=== PATIENT | female | born 1965 | race Caucasian/White ===

== ENCOUNTER 2018-07-17 12:25 | Emergency (ER) | payer OTHER, SELFPAY ==
[2018-07-17 12:34] VITALS: BP 162/82; PULSE 86; RESP 17; TEMP 36.4; O2SAT 99; BMI 22.4
--- NOTE | 2018-07-17 12:46 | XR_ITS ---
XR chest 2V HISTORY: ITS.REASON: chest pain ORDERING PHYSICIAN: Kike Winston MD PATIENT AGE: 53 years COMPARISON: PA and lateral chest 06/04/2014 FINDINGS: Mild emphysematous changes seen with hyperexpansion of lung avelar and flattening of the hemidiaphragms. There is no infiltrate and is no pleural fluid. Cardiac size is normal and the vascularity is normal. IMPRESSION: Mild COPD, no acute chest pathology noted
[2018-07-17 12:56] LABS: Basophils # 0.1 K/mm3 (0-0.2); Basophils % 0.6 % (0.1-2.0); Eosinophils # 0.1 K/mm3 (0.0-0.4); Eosinophils % 1.7 % (0.1-12.0); Hematocrit 42.4 % (37.0-47.0); Lymphocytes # 2.2 K/mm3 (0.7-4.5); Lymphocytes % 27.8 % (10-50); Mean Corpuscular HGB Conc 33.1 g/dL (31.8-35.4); Mean Corpuscular Hemoglobin 29.3 pg (27.0-31.2); Mean Corpuscular Volume 88.3 fl (81-99); Mean Platelet Volume 6.2 fl (7.4-10.4); Monocytes # 0.4 K/mm3 (0.1-1.0); Monocytes % 4.3 % (1.7-9.3); Neutrophils # 5.3 K/mm3 (1.8-7.8); Neutrophils % 65.6 % (37.0-80.0); Platelet Count 262 K/mm3 (142-424); Red Cell Distribution Width 12.8 % (11.5-17.5)
--- NOTE | 2018-07-17 13:03 | HMH.EDGENADL ---
ED Disposition Clinical Impression: Chest pain Disposition: Home, Self-Care Condition on Discharge: Good Instructions: DI for Atypical Chest Pain Prescriptions: Albuterol Sulfate [Albuterol HFA Inhaler] 2 puffs IH Q6HP PRN #1 inh PRN Reason: Shortness Of Breath Or Wheezing Diclofenac Potassium [Diclofenac 50mg Tab] 50 mg PO BID #20 tab Referrals: Provider,Referral, MD [Primary Care Provider] - Time of Disposition: 14:00 - Critical Care Critical Care Time: No Attestation: On 07/17/18, the high probability of a clinically significant, sudden or life threatening deterioration of the following system(s) required my full and direct attention, intervention and personal management. The time I documented below is in addition to time spent performing reported procedures but includes the following listed in this critical care notation. Medical Decision Making - Medical Records Medical records reviewed: Yes: I reviewed the patient's medical records. - Lamberto Inquiry Pt receiving controlled substance: No Lamberto was queried for this patient: No Vital Signs: 07/17/18 12:34 07/17/18 14:11 Temperature 97.6 F 98.0 F Temperature Source Oral Oral Pulse Rate 73 Pulse Rate [Right Brachial] 86 Respiratory Rate 17 18 Blood Pressure 142/75 H Blood Pressure [Right Arm] 162/82 H Blood Pressure Mean [Right Arm] 108 Blood Pressure Source Automatic Cuff Blood Pressure Source [Right Arm] Automatic Cuff Blood Pressure Position Sitting Blood Pressure Position [Right Arm] Sitting 02 Sat by Pulse Oximetry 99 Oxygen Delivery Method Room Air Room Air - Lab Data Lab results reviewed: Yes: I reviewed the patient's lab results. Lab Results 07/17/18 12:47: WBC 8.0, RBC 4.80, Hgb 14.0, Hct 42.4, MCV 88.3, MCH 29.3, MCHC 33.1, RDW 12.8, Plt Count 262, MPV 6.2 L, Neut % (Auto) 65.6, Lymph % (Auto) 27.8, [place] % (Auto) 4.3, Eos % (Auto) 1.7, Baso % (Auto) 0.6, Neut # (Auto) 5.3, Lymph # (Auto) 2.2, [place] # (Auto) 0.4, Eos # (Auto) 0.1, Baso # (Auto) 0.1 07/17/18 12:47: Sodium 143, Potassium 3.4 L, Chloride 103, Carbon Dioxide 29, Anion Gap 14.4, BUN 17, Creatinine 0.69, Estimated Creat Clear 89, Estimated GFR 88, Est GFR ( Amer) 107, Glucose 89, Calcium 9.0, Troponin I < 0.02 07/17/18 12:47: D-Dimer < 100 Result diagrams: 07/17/18 12:47 07/17/18 12:47 Orders (Tests/Meds): ED MEDICATIONS Discontinued Medications Generic Name Dose Route Start Last Admin Trade Name Freq PRN Reason Stop Dose Admin Ketorolac Tromethamine 30 mg 07/17/18 12:53 07/17/18 12:54 Toradol 30mg/Ml Vial IV 07/17/18 12:54 30 mg ONCE ONE Administration Prednisone 60 mg 07/17/18 13:19 07/17/18 13:46 Deltasone 20mg Tablet PO 07/17/18 13:20 60 mg ONCE ONE Administration Sodium Chloride 10 ml 07/17/18 12:56 Saline Flush 10ml Syringe IV 08/16/18 12:55 NEEDED PRN Maintain IV Site General Adult HPI - General Chief complaint: PAIN Stated complaint: pain under breat and left arm Time Seen by Provider: 07/17/18 13:19 Mode of Arrival: Ambulatory Limitations: No Limitations Description of Symptoms (Recalled from ER Triage Doc. by RN): PT STATED HAS HAD LEFT ARM/SHOULDER AND BREAST PAIN FOR OVER A WEEK. THOUGHT MAYBE WAS PLEURITIC IN NATURE BUT IT KEEPS RADIATING DOWN HER ARM. NO COMPLAINTS OF NAUSEA, SOA , OR OTHER CARDIAC RELATED ISSUES. 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 NO ACUTE DISTRESS AT TIME OF TRIAGE - History of Present Illness HPI narrative: had hard coughing spell at night, pain in left chest since. - Related Data Previous Rx's Medication Instructions Recorded benzonatate 100 mg capsule 100 mg PO BID PRN #14 cap 08/27/17 Albuterol Sulfate [Albuterol HFA 2 puffs IH Q6HP PRN #1 inh 07/17/18 Inhaler] Diclofenac Potassium [Diclofenac 50 mg PO BID #20 tab 07/17/18 50mg Tab] All
--- NOTE | 2018-07-17 13:07 | ED_ITS ---
ED Disposition Clinical Impression: Chest pain Disposition: Home, Self-Care Condition on Discharge: Good Instructions: DI for Atypical Chest Pain Prescriptions: Albuterol Sulfate [Albuterol HFA Inhaler] 2 puffs IH Q6HP PRN #1 inh PRN Reason: Shortness Of Breath Or Wheezing Diclofenac Potassium [Diclofenac 50mg Tab] 50 mg PO BID #20 tab Referrals: Provider,Referral, MD [Primary Care Provider] - Time of Disposition: 14:00 - Critical Care Critical Care Time: No Attestation: On 07/17/18, the high probability of a clinically significant, sudden or life threatening deterioration of the following system(s) required my full and direct attention, intervention and personal management. The time I documented below is in addition to time spent performing reported procedures but includes the following listed in this critical care notation. Medical Decision Making - Medical Records Medical records reviewed: Yes: I reviewed the patient's medical records. - Lamberto Inquiry Pt receiving controlled substance: No Lamberto was queried for this patient: No Vital Signs: 07/17/18 12:34 07/17/18 14:11 Temperature 97.6 F 98.0 F Temperature Source Oral Oral Pulse Rate 73 Pulse Rate [Right Brachial] 86 Respiratory Rate 17 18 Blood Pressure 142/75 H Blood Pressure [Right Arm] 162/82 H Blood Pressure Mean [Right Arm] 108 Blood Pressure Source Automatic Cuff Blood Pressure Source [Right Arm] Automatic Cuff Blood Pressure Position Sitting Blood Pressure Position [Right Arm] Sitting 02 Sat by Pulse Oximetry 99 Oxygen Delivery Method Room Air Room Air - Lab Data Lab results reviewed: Yes: I reviewed the patient's lab results. Lab Results 07/17/18 12:47: WBC 8.0, RBC 4.80, Hgb 14.0, Hct 42.4, MCV 88.3, MCH 29.3, MCHC 33.1, RDW 12.8, Plt Count 262, MPV 6.2 L, Neut % (Auto) 65.6, Lymph % (Auto) 27.8, [place] % (Auto) 4.3, Eos % (Auto) 1.7, Baso % (Auto) 0.6, Neut # (Auto) 5.3, Lymph # (Auto) 2.2, [place] # (Auto) 0.4, Eos # (Auto) 0.1, Baso # (Auto) 0.1 07/17/18 12:47: Sodium 143, Potassium 3.4 L, Chloride 103, Carbon Dioxide 29, Anion Gap 14.4, BUN 17, Creatinine 0.69, Estimated Creat Clear 89, Estimated GFR 88, Est GFR ( Amer) 107, Glucose 89, Calcium 9.0, Troponin I < 0.02 07/17/18 12:47: D-Dimer < 100 Result diagrams: 07/17/18 12:47 07/17/18 12:47 Orders (Tests/Meds): ED MEDICATIONS Discontinued Medications Generic Name Dose Route Start Last Admin Trade Name Freq PRN Reason Stop Dose Admin Ketorolac Tromethamine 30 mg 07/17/18 12:53 07/17/18 12:54 Toradol 30mg/Ml Vial IV 07/17/18 12:54 30 mg ONCE ONE Administration Prednisone 60 mg 07/17/18 13:19 07/17/18 13:46 Deltasone 20mg Tablet PO 07/17/18 13:20 60 mg ONCE ONE Administration Sodium Chloride 10 ml 07/17/18 12:56 Saline Flush 10ml Syringe IV 08/16/18 12:55 NEEDED PRN Maintain IV Site General Adult HPI - General Chief complaint: PAIN Stated
[2018-07-17 13:12] LABS: Anion Gap 14.4 mEq/L (5-15); Blood Urea Nitrogen 17 mg/dL (7-18); Carbon Dioxide 29 mmol/L (21.0-32.0); Chloride 103 mmol/L (98-107); Creatinine Clearance Estimated 89 mL/min (50-200); Creatinine,Serum 0.69 mg/dL (0.55-1.02); Estimated Glomerular Filt Rate 88 ml/min (>60); GFR (African American) 107 ML/MIN (>60); Glucose 89 mg/dL (74-106); Potassium 3.4 mmoL/L (3.5-5.1); Sodium 143 mmol/L (136-145); Troponin I < 0.02 ng/ml (0.00-0.06)
[2018-07-17 13:36] LABS: D-Dimer < 100 ng/mL (0-400)
[2018-07-17 14:11] VITALS: BP 142/75; PULSE 73; RESP 18; TEMP 36.7; O2SAT 98
== END 2018-07-17 14:21 | disposition home or self-care (01) ==
PROVIDERS: Emergency Provider Emergency Medicine
DX: R07.89 Other chest pain (principal); F17.210 Nicotine dependence, cigarettes, uncomplicated; E87.6 Hypokalemia
CPT/HCPCS: 71046; 80048; 84484; 85025; 85378; 93005; 96374; 96375; 99283

== ENCOUNTER → 2018-07-26 15:35 | Outpatient (CLI) | payer OTHER, SELFPAY ==
--- NOTE | 2018-07-26 15:47 | XR_ITS ---
EXAM: XR cervical spine 5V HISTORY: Neck pain ITS.REASON: CERVICAL RADICULOPATHY ORDERING PHYSICIAN: Deepthi Beard PATIENT AGE: 53 years COMPARISON: None FINDINGS: There is slight reversal of the cervical lordosis which may be due to patient positioning or muscle spasm. There is 3 mm anterolisthesis of C4 on C5. Moderate degenerative disc disease is present at C5-C6 and C6-C7. Mild foraminal narrowing is noted on the left at C5-C6 and C6-C7. Hypertrophic changes are present on the facets at C3 and C4. No fracture or dislocation. No lytic or blastic change. There is some head tilt to the right IMPRESSION: Reversal lordosis with head tilt toward the right. This could be seen with muscle spasm. Cervical spondylosis
== END ==
PROVIDERS: PCP Internal Medicine Adolescent Medicine; Visit Provider Nurse Practitioner Family
DX: M54.12 Radiculopathy, cervical region (principal)
CPT/HCPCS: 72050

== ENCOUNTER → 2018-09-14 08:42 | Outpatient (CLI) | payer OTHER, SELFPAY ==
--- NOTE | 2018-09-14 08:49 | XR_ITS ---
XR elbow LT min 3V HISTORY: Pain ITS.REASON: ap+ lateral, radial head view ORDERING PHYSICIAN: Angie Batres MD PATIENT AGE: 53 years COMPARISON: None FINDINGS: BONY STRUCTURES: No fracture or dislocation. No lytic or blastic change. Normal mineralization. SOFT TISSUES: Unremarkable. No radio opaque foreign bodies. No displaced fat pad. JOINT SPACE: Well-preserved. No significant arthritic changes evident. IMPRESSION: Negative elbow.
--- NOTE | 2018-09-14 09:05 | XR_ITS ---
XR humerus LT CLINICAL INDICATION: ITS.REASON: left humerus pain ORDERING PHYSICIAN: Angie Batres MD PATIENT AGE: 53 years Comparison: None FINDINGS: No bony or joint abnormality IMPRESSION: Negative left humerus
== END ==
PROVIDERS: PCP Nurse Practitioner Family; Visit Provider Orthopaedic Surgery
DX: M25.522 Pain in left elbow (principal); M79.602 Pain in left arm
CPT/HCPCS: 73060; 73080

== ENCOUNTER → 2018-09-22 12:24 | Outpatient (POV) | payer OTHER, SELFPAY | PROVIDERS: Visit Provider Specialist | DX: R20.2 Paresthesia of skin (principal); M54.2 Cervicalgia; M79.602 Pain in left arm | CPT/HCPCS: 95886; 95908 ==

== ENCOUNTER 2018-09-28 14:00 | Outpatient (RCR) | payer OTHER, SELFPAY ==
--- NOTE | 2018-09-15 09:37 | HMH.PTOPEV ---
PT Outpatient Evaluation Rehab PT Outpatient Evaluation Start: 09/15/18 09:20 Freq: Status: Active Protocol: Document 09/15/18 09:20 HILDA (Rec: 09/15/18 09:35 HILDA [id number]) Electronically Signed By Montrell Gruber, PT 09/15/18 09:20 Outpatient Therapy Subjective History Subjective History Patient is a 53 year old female presenting to outpatient PT with reports of L cervical spine pain and LUE radicular symptoms to the L index finger. Most recent diagnostics indicate reverse cervical lordosis and cervical spondylosis. No other comorbidities to report. Chief Complaint Pain,Stiff Symptom Type Sharp,Tingling Symptoms Relieved By Heat,Ice,Prescription Meds Symptoms Aggravated By Physical Activity,Lifting Prior Functional Limitations None Current Functional Limitations Reaching,Lifting,Housework, Recreation Activity Symptom Description Constant but Variable Level of pain today (0-10) 5 Pain scale - at its best (0-10) 2 Pain scale - at its worst (0-10) 7 Cervical Eval Palpation Cervical Muscles L Cervical Paraspinal,L Upper Trapezius Posture Head/C-Spine Posture Sitting Position C-Spine Flattened Head/C-Spine Posture Standing Position C-Spine Flattened Flexibility Deficits Upper Trapezius Muscle Length (R) Moderate Tightness,(L) Moderate Tightness Levaetor Scapulae Muscle Length (R) Moderate Tightness,(L) Moderate Tightness Pectoralis Minor Muscle Length (R) Moderate Tightness,(L) Moderate Tightness Passive Joint Mobility Cervical PIVM Dec: R C2/3 L C2/3 R C3/4 L C3/4 R C4/5 L C4/5 R C5/6 L C5/6 R C6/7 L C6/7 R C7/T1 L C7/T1 WNL: R OA L OA R AA L AA AROM Cervical Spine Extension Active Range of 48 Motion (degrees) Cervical Spine Flexion Active Range of 70 Motion (degrees) Cervical Spin
== END 2018-09-28 14:05 | disposition home or self-care (01) ==
LOC: PT 14:00
PROVIDERS: Visit Provider Nurse Practitioner Family
DX: M54.12 Radiculopathy, cervical region (principal); R20.2 Paresthesia of skin
CPT/HCPCS: 97010; 97012; 97014; 97035; 97110; 97140; 97163; G0283

== ENCOUNTER → 2020-12-05 10:13 | Outpatient (CLI) | payer BC, SELFPAY ==
--- NOTE | 2020-12-05 10:31 | XR_ITS ---
PROCEDURE: XR CHEST 2V CLINICAL HISTORY: CHEST PAIN,EMPHYSEMA COMPARISON: CR CXR CHEST(2 VIEWS-NOT PORTABLE) from 05/21/[address] CHEST W/ CONTRAST from 06/04/2014 CR CXR CHEST(2 VIEWS-NOT PORTABLE) from 06/04/2014 CR CXR2V XR chest 2V from 07/17/2018 CR [id number] XR cervical spine 5V from 07/26/2018 FINDINGS: The cardiomediastinal silhouette and pulmonary vascularity are within normal limits. An apical mass is present on the right measuring 4 x 2.9 cm with spiculated margins highly suspicious for neoplasm. Suggest chest CT with contrast for further evaluation. No acute bony abnormalities. IMPRESSION: Spiculated right apical mass highly suspicious for neoplasm. Suggest chest CT with contrast for further evaluation. Dictated by: Oscar Mosqueda MD 12/05/2020 10:51 Oscar Mosqueda MD in [place] 12/05/2020 10:51
[2020-12-05 10:45] LABS: Basophils # 0.1 K/mm3 (0-0.2); Basophils % 0.7 % (0.1-2.0); Eosinophils # 0.1 K/mm3 (0.0-0.4); Hematocrit 42.3 % (37.0-47.0); Hemoglobin 14.4 g/dL (12.2-16.2); Lymphocytes # 1.6 K/mm3 (0.7-4.5); Lymphocytes % 20.3 % (10-50); Mean Corpuscular HGB Conc 34.1 g/dL (31.8-35.4); Mean Corpuscular Hemoglobin 29.4 pg (27.0-31.2); Mean Platelet Volume 7.2 fl (7.4-10.4); Monocytes # 0.3 K/mm3 (0.1-1.0); Monocytes % 4.5 % (1.7-9.3); Neutrophils # 5.6 K/mm3 (1.8-7.8); Neutrophils % 73.5 % (37.0-80.0); Platelet Count 257 K/mm3 (142-424); Red Blood Count 4.91 M/mm3 (4.20-5.40); Red Cell Distribution Width 13.3 % (11.5-17.5); White Blood Count 7.7 K/mm3 (4.8-10.8)
[2020-12-05 11:06] LABS: Chloride 105 mmol/L (98-107); Potassium 3.8 mmoL/L (3.5-5.1); Sodium 142 mmol/L (136-145)
[2020-12-05 11:08] LABS: Alanine Aminotransferase 10 U/L (12-78); Aspartate Amino Transferase 19 U/L (14-36); Blood Urea Nitrogen 16 mg/dl (7-17); Estimated Glomerular Filt Rate 86 ml/min (>60); GFR (African American) 104 ML/MIN (>60)
[2020-12-05 11:09] LABS: Albumin Level 4.8 g/dl (3.5-5.0); Albumin/Globulin Ratio 1.8 (1.1-1.8); Alkaline Phosphatase 120 U/L (38-126); Anion Gap 12.8 mEq/L (5-15); Bilirubin,Total 0.6 mg/dl (0.2-1.3); Calcium 9.2 mg/dl (8.4-10.2); Carbon Dioxide 28 mmol/L (22.0-30.0); Chol/HDL Ratio 3.8 (1-3.5); Cholesterol 214 mg/dl (140-200); Globulin 2.7 g/dL (1.3-3.2); Glucose 105 mg/dl (74-100); HDL Cholesterol 56 mg/dl (40-60); Total Protein,Serum 7.5 g/dl (6.3-8.2); Triglycerides 126 mg/dl (30-150); VLDL Cholesterol 25 mg/dL (0-40)
== END ==
PROVIDERS: Visit Provider Internal Medicine Adolescent Medicine
DX: R07.9 Chest pain, unspecified (principal); J43.1 Panlobular emphysema
CPT/HCPCS: 36415; 71046; 80053; 80061; 85025

== ENCOUNTER → 2020-12-11 11:07 | Outpatient (CLI) | payer BC, SELFPAY ==
--- NOTE | 2020-12-11 11:12 | CT_ITS ---
PROCEDURE: CT CHEST WO/W CON CLINCAL INDICATION: NODULE OF APEX OF RT LUNG Follow-up right lung nodule, right-sided chest pain COMPARISON: CT [facility] CT CHEST W/ CONTRAST from 06/04/2014 TECHNIQUE: IV Contrast: 75ml Isovue 370 Axial images obtained with sagittal and coronal reformats. All CT scans at the facility use one or more dose reduction, viz: automated exposure control, ma/kV adjustment per patient size (including targeted exams where dose is matched to indication, i.e. head), or iterative reconstruction technique. FINDINGS: HEART AND MEDIASTINAL STRUCTURES: There is a mildly prominent right hilar lymph node which is slightly increased in size compared to the previous exam measuring 1.5 cm previously measuring approximately 1.2 cm. LUNGS AND PLEURAL SPACES: There has been interval development a spiculated right apical mass. The mass measures 3.5 cm AP, 2.5 cm transverse, and 2.1 cm cephalad caudad. Mass extends 2 the pleural surface. Cannot exclude the possibility minor extrapleural involvement into the chest wall the. This is highly suspicious for neoplasm. There is some minimal cavitation along the inferior aspect of the mass. Spicules from the mass extend toward the hilum. There is some recruitment right upper lobe pulmonary vessels. Centrilobular emphysematous changes are present. There are some scattered areas of scarring. Along the superior aspect of the aortic arch there is irregular soft tissue nodule measuring 2.2 cm transverse and 1 cm AP. This could represent a metastatic focus, an area of infiltrate, atelectasis or fibrosis, the or even a synchronous lung neoplasm. BONY STRUCTURES: No acute bony abnormalities apparent. UPPER ABDOMEN: Adrenal glands have an unremarkable appearance. The liver is not completely visualized however the visualized portions of the liver show no obvious mass. ADDITIONAL FINDINGS: No other significant abnormalities. IMPRESSION: 3.5 cm spiculated mass in the right apex highly suspicious for malignancy extending extending to the pleural surface and possibly through the pleura into the intercostal space of the right 1st rib. Additional irregular opacity in the left upper lobe lying along the superior aspect of the aortic arch at 2.2 cm which could be due to metastatic focus, 2nd lung cancer, or an area of atelectasis/fibrosis or infiltrate. Suggest PET-CT for further evaluation for staging to better determine if this is an area of neoplasm. There is a mildly prominent right hilar lymph node at 1.5 cm. No contralateral adenopathy. Dictated by: Oscar Mosqueda MD 12/11/2020 13:47 Oscar Mosqueda MD in [place] 12/11/2020 13:47
== END ==
PROVIDERS: PCP Internal Medicine Adolescent Medicine; Visit Provider Internal Medicine Adolescent Medicine
DX: R91.1 Solitary pulmonary nodule (principal)
CPT/HCPCS: 71270; Q9967

== ENCOUNTER → 2020-12-26 13:16 | Outpatient (CLI) | payer BC, SELFPAY | PROVIDERS: Visit Provider Internal Medicine Pulmonary Disease | DX: Z01.812 Encounter for preprocedural laboratory examination (principal); Z11.52 Encounter for screening for COVID-19 | CPT/HCPCS: U0003 ==

== ENCOUNTER 2020-12-29 08:34 | Day surgery (SDC) | payer BC, OTHER, SELFPAY ==
[2020-12-25 14:59] VITALS: BMI 21.6
[2020-12-29] VITALS (11 sets, daily range): BP systolic 116–147; BP diastolic 61–87; PULSE 60–68; RESP 16–22; TEMP 36.2–36.7; O2SAT 97–100
--- NOTE | 2020-12-29 10:30 | HMH.ANESCL ---
[facility] Anesthesia Checklist - Patient Identification Patient Identification: Arm Band - Structural Data Admitted From: Home Planned Operative Procedure/s: bronchoscopy Consent for Planned Operative Procedure(s) Verified: Yes Verified Documents: Surgical Consent, History and Physical - NPO Status Verified Time NPO: 00:00 - Additional verifications Anesthesia Reactions: No Hx Blood Transfusions: No Blood Transfusion Reaction: No - Airway Assessment C-Spine Mobility Assessed: Yes (mp2) TMJ Mobility Assessed: Yes Dentition: Good Dentition - Neurological Assessment Level of Consciousness: Awake, Alert - Anesthesia Plan Anesthesia Risk discussed: Yes Anesthesia Plan: Verified ASA Class: III Anesthesia Type: General [facility] History I have reviewed the patient's past medical history: Yes Medical History: Reports:: Cancer (lung), Chronic Obstructive Pulmonary Disease (COPD), Hypertension Denies:: Diabetes Mellitus Type 1, Diabetes Mellitus Type 2, Internal Pacemaker, MRSA, Seizures *Have you ever received a pneumonia vaccine?: No *Have you received a flu vaccine this season?: No Other Medical History: Denies: Blood Transfusion Reaction Anesthesia experience/problems:: nac Other Surgeries: Yes: , Tubal Ligation, Other. No: Pacemaker Amputation: No Fractures: No - *Social History Last grade of school completed: High school graduate Smoking Status: Current every day smoker Tobacco Type: cigarettes # Packs/Day (cigarettes): 1 #Yrs smoked (if former smoker): 30 Alcohol Intake: current Alcohol Intake Frequency:: holidays/special occasions only Substance Use Type: denies use *Occupational Status:: employed Housing: house Household Members: spouse *Travel in the last 8 weeks: None Family Hx:: Heart Attack
--- NOTE | 2020-12-29 12:07 | HMH.BRONCH ---
- Procedure: Date: 12/29/20 Patient Date of :: 1965 Procedure Performed:: Bronchoscopy with endobronchial ultrasound fine-needle aspiration, bronchoalveolar lavage and transbronchial biopsy Indications:: Right lung mass and lymphadenopathy Performing Provider:: Brian Nguyen MD Referring Provider:: Sedation:: General anesthesia Procedure:: Bronchoscopy with endobronchial ultrasound, fine-needle aspiration, bronchoalveolar lavage transbronchial biopsy: A clean EBUS bronchoscopy was advanced the ET tube and lymph node stations were examined, patient found to be having internal adenopathy at stations 10L and 7, 10 R and 4R. Endobronchial ultrasound-guided fine-needle aspirations were performed in each of these 4 lymph node stations 5 passes with each station. Preliminary pathology examination [there lymphoid tissue with all the stations with no evidence of tumor. EBUS bronchoscopy was retracted chronically therapeutic bronchoscopy was advanced; for was lavage was performed the right upper lobe, and sent for bacterial fungal AFB stain culture along with cytopathology. Transbronchial biopsies were also performed in the right upper lobe and were only sent for cytopathological examination. Patient tolerated the procedure well. We will follow the patient in the clinic with a PET scan as previously scheduled in the clinic. Findings:: Please see the procedure note Recommendations:: Please see the procedure note Complications:: None Estimated blood obtained (mL): 10
--- NOTE | 2020-12-29 12:17 | HMH.ANESI ---
[facility] Anesthesia Record Part I Intake, IV Amount: 1,200 Estimated blood loss (mL): 0 Urine output (mL): 0 Blood Pressure: 130/82 SaO2: 100 Pulse Rate: 68 Respiratory Rate: 16 Temperature: 97.2 F Patient is:: Drowsy, Stable
--- NOTE | 2020-12-29 12:22 | XR_ITS ---
PROCEDURE: XR CHEST AP CLINICAL HISTORY: Right upper lobe mass COMPARISON: CR CXR CHEST(2 VIEWS-NOT PORTABLE) from 06/04/2014 CR CXR2V XR chest 2V from 07/17/2018 CR XR CHEST 2V from 12/05/[address] CHEST WO/W CON from 12/11/2020 FINDINGS: Fluoroscopy time: 105 seconds Single image submitted with the C-arm shows a catheter overlying the right upper lobe at the 2nd rib region in the area of the right upper lobe lesion. IMPRESSION: S/p and a bronchoscopic biopsy with C-arm guidance Dictated by: Oscar Mosqueda MD 12/29/2020 12:55 Oscar Mosqueda MD in [place] 12/29/2020 12:55
--- NOTE | 2020-12-29 14:32 | HMH.ANESII ---
[facility] Anesthesia Record Part II Discharge Time: 12:50 Destination: Surgical Day Care (OP Surgery) PACU nurse assessment reviewed?: Yes Patient Condition:: Good Anesthesia Complications:: None Swallowing reflex intact?: Yes Cyanosis?: No Blood Pressure: 143/81 Pulse Rate: 67 Temperature: 98 F Mental Status: Alert & Oriented Pain level:: 3 Nausea and/or vomitting:: None Intake, IV Amount: 0
== END 2020-12-29 13:21 | disposition home or self-care (01) ==
LOC: OR 08:35
PROVIDERS: PCP Internal Medicine Adolescent Medicine; Visit Provider Internal Medicine Pulmonary Disease
PROC: (CPT 31624; principal; 2020-12-29 10:00)
DX: R91.8 Other nonspecific abnormal finding of lung field (principal); R59.0 Localized enlarged lymph nodes; F17.210 Nicotine dependence, cigarettes, uncomplicated; J44.9 Chronic obstructive pulmonary disease, unspecified
CPT/HCPCS: 31624; 31654; 31653; 71045; 87070; 87102; 87116; 87186; 87205; 87206; 89051

== ENCOUNTER 2021-07-30 14:25 | Inpatient (IN) | payer BC, SELFPAY ==
[2021-07-30] VITALS (12 sets, daily range): BP systolic 96–117; BP diastolic 55–72; PULSE 79–91; RESP 14–24; TEMP 36.8–37.3; O2SAT 95–100; BMI 22.4; BMI 22.0
--- NOTE | 2021-07-30 14:57 | ECG_ITS ---
APPROVED REPORT Exam: Resting ECG HR:81 bpm ECG Measurements Heart Rate 81 AXES TX 168 P 72 QRSd 94 QRS 68 QT 410 T 29 QTc 447 Conclusion SINUS RHYTHM INCOMPLETE RIGHT BUNDLE BRANCH BLOCK [90+ ms QRS DURATION, TERMINAL R IN V1/V2, 40+ ms S IN I/aVL/V4/V5/V6] NONSPECIFIC T-WAVE ABNORMALITY BORDERLINE ECG UNCONFIRMED REPORT Electronically signed by : Rashad Thomas MD 07/31/2021 16:02:21
--- NOTE | 2021-07-30 15:03 | XR_ITS ---
FINAL REPORT CLINICAL HISTORY: cough, cancer pt is going through chemo and radiation COMPARISON: December 05, 2020 FINDINGS: The heart size is normal. The mediastinum is normal. There is interval improvement in the soft tissue opacity in the periphery of the right upper lobe. Opacity measures 3.8 cm and previously measured 5.5 cm. There are no pleural effusions. There is no pneumothorax. There is no osseous abnormality. IMPRESSION: Interval improvement in the right upper lobe soft tissue opacity. If indicated, CT could further evaluate. Reviewed, Interpreted and Dictated by Suman Flores III, MD Transcribed by Klever Thomas Authenticated by Suman Flores III, MD on 07/30/2021 04:17:[address] [facility]
--- NOTE | 2021-07-30 15:05 | HMH.EDWEAK ---
ED Disposition Clinical Impression: Hyponatremia, Acute kidney injury, Hypokalemia, Dehydration Disposition: Admitted as Observation Condition on Discharge: Fair Referrals: Rashad Thomas MD [Primary Care Provider] - - Critical Care Critical Care Time: No Attestation: On 07/30/21, the high probability of a clinically significant, sudden or life threatening deterioration of the following system(s) required my full and direct attention, intervention and personal management. The time I documented below is in addition to time spent performing reported procedures but includes the following listed in this critical care notation. Medical Decision Making - Medical Records Medical records reviewed: Yes: I reviewed the patient's medical records. - Lamberto Inquiry Pt receiving controlled substance: No Vital Signs: 07/30/21 14:26 07/30/21 14:43 07/30/21 15:00 Temperature 99.2 F Temperature Source Oral Pulse Rate 91 H 81 Pulse Rate [Right Radial] 88 Respiratory Rate 16 Blood Pressure 117/67 96/59 L Blood Pressure [Right Arm] 117/67 Blood Pressure Mean [Right Arm] 83 Blood Pressure Source [Right Arm] Automatic Cuff Blood Pressure Position [Right Arm] Sitting 02 Sat by Pulse Oximetry 100 100 98 Oxygen Delivery Method Room Air 07/30/21 15:30 07/30/21 16:00 Temperature Temperature Source Pulse Rate 86 79 Pulse Rate [Right Radial] Respiratory Rate 24 14 Blood Pressure 100/69 L 110/72 Blood Pressure [Right Arm] Blood Pressure Mean [Right Arm] Blood Pressure Source [Right Arm] Blood Pressure Position [Right Arm] 02 Sat by Pulse Oximetry 98 95 Oxygen Delivery Method - Lab Data Lab Results 07/30/21 14:45: Sodium 126 L, Potassium 2.6 L*, Chloride 84 L, Carbon Dioxide 34 H, Anion Gap 10.6, BUN 29 H, Creatinine 1.30 H, Estimated Creat Clear 46, Estimated GFR 42 L, Est GFR ( Amer) 51 L, Glucose 134 H, Calcium 8.0 L, Total Bilirubin 0.8, AST 25, ALT 22, Alkaline Phosphatase 79, Troponin I 0.02, Total Protein 6.5, Albumin 3.7, Globulin 2.8, Albumin/Globulin Ratio 1.3, Lipase 25 07/30/21 14:55: WBC 1.3 L*, RBC 2.83 L, Hgb 8.6 L, Hct 25.2 L, MCV 88.8, MCH 30.5, MCHC 34.4, RDW 14.8, Plt Count 125 L, MPV 8.2, Neut % (Auto) 72.9, Lymph % (Auto) 19.6, [place] % (Auto) 5.8, Eos % (Auto) 0.7, Baso % (Auto) 1.0, Neut # (Auto) 1.0 L, Lymph # (Auto) 0.3 L, [place] # (Auto) 0.1, Eos # (Auto) 0.0, Baso # (Auto) 0.0 07/30/21 14:55: Sodium 126 L, Potassium 2.6 L*, Chloride 84 L, Carbon Dioxide 34 H, Anion Gap 10.6, BUN 30 H, Creatinine 1.20 H, Estimated Creat Clear 49, Estimated GFR 46 L, Est GFR ( Amer) 56 L, Glucose 135 H, Calcium 7.9 L, Total Bilirubin 0.8, AST 26, ALT 23, Alkaline Phosphatase 73, Total Protein 6.3, Albumin 3.6, Globulin 2.7, Albumin/Globulin Ratio 1.3 Result diagrams: 07/30/21 14:55 07/30/21 14:55 Orders (Tests/Meds): ED MEDICATIONS Generic Name Dose Route Start Last Admin Trade Name Freq PRN Reason Stop Dose Admin Sodium Chloride 10 ml 07/30/21 14:56 Sodium Chloride 0.9% 10ml Flush Syringe IV 08/29/21 14:55 NEEDED PRN Maintain IV Site Sodium Chloride 8 ml 07/30/21 15:03 Sodium Chloride 0.9% 10ml Vial IV 08/29/21 15:02 NEEDED PRN dilute pepcid Discontinued Medications Generic Name Dose Route Start Last Admin Trade Name Freq PRN Reason Stop Dose Admin Famotidine 20 mg 07/30/21 15:03 07/30/21 15:15 Famotidine 20mg/2ml Vial IV 07/30/21 15:04 20 mg ONCE ONE Administration Sodium Chloride 1,000 mls @ 999 mls/hr 07/30/21 15:15 07/30/21 15:15 Sod Chlor 0.9% 1000ml Bag IV 07/30/21 16:15 999 mls/hr .Q1H1M JEREMIAS Administration Magnesium Sulfate 1 gm/ Sodium 52 mls @ 100 mls/hr 07/30/21 15:17 07/30/21 15:29 Chloride IV 07/30/21 15:48 100 mls/hr ONCE ONE Administration Potassium Chloride/Water 100 mls @ 100 mls/hr 07/30/21 15:17 Potassium Chloride 10meq/100ml Ivpb IV 07/30/21 16:16 ONCE
[2021-07-30 15:11] LABS: Chloride 84 mmol/L (98-107); Sodium 126 mmol/L (136-145)
[2021-07-30 15:13] LABS: Blood Urea Nitrogen 30 mg/dl (7-17); Creatinine Clearance Estimated 49 mL/min (50-200); Estimated Glomerular Filt Rate 46 ml/min (>60); GFR (African American) 56 ML/MIN (>60)
[2021-07-30 15:14] LABS: Alanine Aminotransferase 23 U/L (12-78); Albumin Level 3.6 g/dl (3.5-5.0); Albumin/Globulin Ratio 1.3 (1.1-1.8); Alkaline Phosphatase 73 U/L (38-126); Anion Gap 10.6 mEq/L (5-15); Aspartate Amino Transferase 26 U/L (14-36); Bilirubin,Total 0.8 mg/dl (0.2-1.3); Calcium 7.9 mg/dl (8.4-10.2); Carbon Dioxide 34 mmol/L (22.0-30.0); Globulin 2.7 g/dL (1.3-3.2); Glucose 135 mg/dl (74-100); Total Protein,Serum 6.3 g/dl (6.3-8.2)
[2021-07-30 15:15] LABS: Potassium 2.6 mmoL/L (3.5-5.1)
[2021-07-30 15:17] LABS: Alanine Aminotransferase 22 U/L (12-78); Aspartate Amino Transferase 25 U/L (14-36); Bilirubin,Total 0.8 mg/dl (0.2-1.3); Blood Urea Nitrogen 29 mg/dl (7-17); Creatinine Clearance Estimated 46 mL/min (50-200); Estimated Glomerular Filt Rate 42 ml/min (>60); GFR (African American) 51 ML/MIN (>60)
[2021-07-30 15:18] LABS: Albumin Level 3.7 g/dl (3.5-5.0); Albumin/Globulin Ratio 1.3 (1.1-1.8); Alkaline Phosphatase 79 U/L (38-126); Carbon Dioxide 34 mmol/L (22.0-30.0); Globulin 2.8 g/dL (1.3-3.2); Glucose 134 mg/dl (74-100); Lipase 25 U/L (23-300); Total Protein,Serum 6.5 g/dl (6.3-8.2)
[2021-07-30 15:23] LABS: Eosinophils % 0.7 % (0.1-12.0); Hematocrit 25.2 % (37.0-47.0); Hemoglobin 8.6 g/dL (12.2-16.2); Lymphocytes # 0.3 K/mm3 (0.7-4.5); Lymphocytes % 19.6 % (10-50); Mean Corpuscular HGB Conc 34.4 g/dL (31.8-35.4); Mean Corpuscular Hemoglobin 30.5 pg (27.0-31.2); Mean Corpuscular Volume 88.8 fl (81-99); Mean Platelet Volume 8.2 fl (7.4-10.4); Monocytes # 0.1 K/mm3 (0.1-1.0); Monocytes % 5.8 % (1.7-9.3); Neutrophils % 72.9 % (37.0-80.0); Platelet Count 125 K/mm3 (142-424); Red Blood Count 2.83 M/mm3 (4.20-5.40); Red Cell Distribution Width 14.8 % (11.5-17.5); White Blood Count 1.3 K/mm3 (4.8-10.8)
[2021-07-30 15:30] LABS: Troponin I 0.02 ng/ml (0.00-0.034)
[2021-07-30 15:34] LABS: Sodium 126 mmol/L (136-145)
[2021-07-30 15:35] LABS: Anion Gap 10.6 mEq/L (5-15); Chloride 84 mmol/L (98-107); Potassium 2.6 mmoL/L (3.5-5.1)
[2021-07-30 16:43] LABS: Coronavirus 19, PCR Not Detected (NotDetected); Influenza A, PCR Not Detected (NotDetected); Influenza B, PCR Not Detected (NotDetected)
--- NOTE | 2021-07-30 17:00 | PC.NURSE ---
REPORT CALLED TO LOGAN CUEVAS RN ON SECOND FLOOR, AWAITING RESULTS OF COVID SWAB, STATES HE WILL SEND STAFF TO TRANSPORT PT WHEN IT IS RESULTED
--- NOTE | 2021-07-30 18:19 | PC.NURSE ---
Pt arrived to the floor at this time
[2021-07-30 18:56] LABS: Troponin I 0.02 ng/ml (0.00-0.034)
--- NOTE | 2021-07-30 19:18 | PC.NURSE ---
PO POTASSIUM CHANGED TO IV INFUSIONS RT PT INABILITY TO TOLERATE SWALLOWING.
[2021-07-30 22:16] LABS: Troponin I 0.02 ng/ml (0.00-0.034)
[2021-07-31] VITALS (19 sets, daily range): BP systolic 89–123; BP diastolic 53–71; PULSE 80–93; RESP 16–20; TEMP 36.8–38.7; O2SAT 90–100; BMI 22.1
[2021-07-31 02:41] LABS: Microscopic, Urine URINE MICROSCOPIC (MICROSCOPIC)
[2021-07-31 02:45] LABS: Bilirubin,Urine Negative (Negative); Blood, Urine Negative (Negative); Color,Urine YELLOW (Yellow); Glucose,Urine (UA) Negative (Negative); Ketones,Urine Negative (Negative); Leukocyte Esterase,Urine 1+ (Negative); Nitrate,Urine Negative (Negative); Protein,Urine TRACE (Negative); Specific Gravity, Urine 1.015 (1.005-1.030); Urobilinogen,Urine 0.2 EU/dl (0.2)
[2021-07-31 02:49] LABS: Appearance,Urine Slightly Cloudy (Clear)
[2021-07-31 03:11] LABS: Amorphous Sediment,Urine 1+ /lpf; Bacteria,Urine 1+ /lpf; Mucus,Urine 1+ /lpf
[2021-07-31 06:56] LABS: Basophils % 0.5 % (0.1-2.0); Eosinophils % 0.2 % (0.1-12.0); Lymphocytes # 0.3 K/mm3 (0.7-4.5); Lymphocytes % 31.3 % (10-50); Mean Corpuscular HGB Conc 34.6 g/dL (31.8-35.4); Mean Corpuscular Hemoglobin 31.1 pg (27.0-31.2); Mean Corpuscular Volume 89.9 fl (81-99); Mean Platelet Volume 8.8 fl (7.4-10.4); Monocytes # 0.1 K/mm3 (0.1-1.0); Monocytes % 6.6 % (1.7-9.3); Neutrophils # 0.6 K/mm3 (1.8-7.8); Neutrophils % 61.3 % (37.0-80.0); Platelet Count 99 K/mm3 (142-424); Red Blood Count 2.14 M/mm3 (4.20-5.40)
[2021-07-31 07:01] LABS: Magnesium 1.8 mg/dl (1.6-2.3)
[2021-07-31 07:04] LABS: Anion Gap 4.9 mEq/L (5-15); Blood Urea Nitrogen 20 mg/dl (7-17); Calcium 7.6 mg/dl (8.4-10.2); Carbon Dioxide 32 mmol/L (22.0-30.0); Chloride 96 mmol/L (98-107); Creatinine Clearance Estimated 53 mL/min (50-200); Estimated Glomerular Filt Rate 51 ml/min (>60); GFR (African American) 62 ML/MIN (>60); Glucose 103 mg/dl (74-100); Potassium 3.9 mmoL/L (3.5-5.1); Sodium 129 mmol/L (136-145)
--- NOTE | 2021-07-31 07:13 | HMH.HP ---
*Admission Date: 07/30/21 *Chief complaint: dehydration, lung cancer *History of present illness: Ms. Trent is a 56-year-old female who is new her to our office. She presented to the ER yesterday with generalized weakness. Of note she has a recent diagnosis of lung cancer for which she has been undergoing chemotherapy and radiation treatment. Last treatment of chemo last Tuesday, radiation last . On arrival to the ER she was noted to have significant electrolyte disturbances with hypokalemia, hyponatremia, hypochloremia. Also noted to be anemic with borderline neutropenia. Admitted to medicine for weakness and metabolic derangements. On evaluation this morning, she states she had been very nauseous and had a hard time eating after her radiation due to esophageal irritation. Minimal appetite has led to her dehydration. No fever, cough, diarrhea. Actually has had some constipation for a few days that resolved when taking magnesium oxide. Abdominal pain improved after bowel movement. Denies headache, confusion, focal weakness/neurologic deficits. Pleasant on interview today. [facility] History I have reviewed the patient's past medical history: Yes Medical History: Reports:: Cancer, Chronic Obstructive Pulmonary Disease (COPD), Hyperlipidemia, Hypertension Denies:: Diabetes Mellitus Type 1, Diabetes Mellitus Type 2, Internal Pacemaker, MRSA, Seizures *Have you ever received a pneumonia vaccine?: Yes *Have you received a flu vaccine this season?: Yes Other Medical History: Denies: Blood Transfusion Reaction Other Surgeries: Yes: , Tubal Ligation, Other. No: Pacemaker Amputation: No Fractures: No - *Social History Last grade of school completed: High school graduate Smoking Status: Former smoker Tobacco Type: cigarettes # Packs/Day (cigarettes): 1 #Yrs smoked (if former smoker): 30 Alcohol Intake: never Alcohol Intake Frequency:: holidays/special occasions only Substance Use Type: denies use *Occupational Status:: retired Housing: house Household Members: spouse *Travel in the last 8 weeks: None Family Hx:: Heart Attack Review of Systems - Review of Systems Review of systems:: pertinent systems reviewed and negative unless documented below (14 point review of systems performed, pertinent positives and negatives as per HPI) - *Neurologic Denies headache(s) Meds Home Medications Medication Instructions Recorded Confirmed Type bisoprolol 2.5 1 tab PO DAILY tab 12/22/20 07/30/21 History mg-hydrochlorothiazide 6.25 mg tablet tiotropium 2.5 mcg-olodaterol 2.5 2 puff IH DAILY 12/22/20 07/31/21 History mcg/actuation mist for inhalation Hydrocod/Acet 5/325 mg [Clarence 1 tab PO Q6HP PRN 07/31/21 07/31/21 History 5/325mg tablet] Allergies Allergy/AdvReac Type Severity Reaction Status Date / Time No Known Allergies Allergy Verified 01/09/21 08:42 Exam Vital signs and Labs for Last 24 Hours: Temp Pulse Resp BP Pulse Ox 99.3 F 87 16 94/53 L 97 07/31/21 04:00 07/31/21 04:00 07/31/21 04:00 07/31/21 04:00 07/31/21 04:00 Laboratory Results - last 24 hr 07/30/21 14:45: Sodium 126 L, Potassium 2.6 L*, Chloride 84 L, Carbon Dioxide 34 H, Anion Gap 10.6, BUN 29 H, Creatinine 1.30 H, Estimated Creat Clear 46, Estimated GFR 42 L, Est GFR ( Amer) 51 L, Glucose 134 H, Calcium 8.0 L, Total Bilirubin 0.8, AST 25, ALT 22, Alkaline Phosphatase 79, Troponin I 0.02, Total Protein 6.5, Albumin 3.7, Globulin 2.8, Albumin/Globulin Ratio 1.3, Lipase 25 07/30/21 14:55: WBC 1.3 L*, RBC 2.83 L, Hgb 8.6 L, Hct 25.2 L, MCV 88.8, MCH 30.5, MCHC 34.4, RDW 14.8, Plt Count 125 L, MPV 8.2, Neut % (Auto) 72.9, Lymph % (Auto) 19.6, [place] % (Auto) 5.8, Eos % (Auto) 0.7, Baso % (Auto) 1.0, Neut # (Auto) 1.0 L, Lymph # (Auto) 0.3 L, [place] # (Auto) 0.1, Eos # (Auto) 0.0, Baso # (Auto) 0.0 07/30/21 14:55: Sodium 126 L, Potassium 2.6 L*, Chloride 84 L, Carbon Dioxide 34 H, Anion Gap 10.6, BUN 30 H, Creat
--- NOTE | 2021-07-31 07:15 | P.CONPHA_ITS ---
[facility] Pharmacy VTE Monitoring - Patient Demographics Admission date: 07/30/21 Report Date: 07/31/21 Time: 07:15 Allergies/Adverse Reactions: Patient Allergies No Known Allergies Allergy (Verified 01/09/21 08:42) Height: 1.65 m Weight: 60.47 kg Patient Problems: Current Active Problems Hyponatremia (Acute) Acute kidney injury (Acute) Hypokalemia (Acute) Dehydration (Acute) - VTE Risk Labs: VTE Related Lab Results Hgb 8.6 g/dL (12.2-16.2) L 07/30/21 14:55 Hct 25.2 % (37.0-47.0) L 07/30/21 14:55 Plt Count 125 K/mm3 (142-424) L 07/30/21 14:55 BUN 30 mg/dl (7-17) H 07/30/21 14:55 Creatinine 1.20 mg/dl (0.52-1.04) H 07/30/21 14:55 Estimated Creat Clear 49 mL/min (50-200) 07/30/21 14:55 VTE Risk Level: Very Low Risk - Prophylaxis VTE Prophylaxis Ordered?: Yes Types of VTE Prophylaxis: TEDS Knee High, Pharmacological Location of Applied Device: Bilateral Lower Extremeties Pharmacologic Type: Enoxaparin
--- NOTE | 2021-07-31 07:19 | HMH.PHAINT ---
MEDICATION RECONCILIATION COMPLETED ON PATIENT USING EXTERNAL FILL HISTORY FROM PHARMACY. -LEDA INTERIANO, ALBERD
[2021-07-31 07:31] LABS: White Blood Count 0.9 K/mm3 (4.8-10.8)
[2021-07-31 07:32] LABS: Hematocrit 19.3 % (37.0-47.0)
[2021-07-31 07:33] LABS: Hemoglobin 6.7 g/dL (12.2-16.2); MANUAL DIFFERENTIAL MANUAL DIFFERENTIAL (MANUAL DIFF)
[2021-07-31 09:41] LABS: Lymphocytes % 29 % (10-50); Monocytes % 4 % (2-9); Neutrophils % 67 % (42-76); Total Cells Counted 100
[2021-07-31 09:45] LABS: Platelet Estimate Normal
--- NOTE | 2021-07-31 09:50 | DIET.NUTRFU ---
Addendum entered by Mary Allen RD, LD 07/31/21 13:30: spoke to patient, reports she just completed her 6 weeks of chemo/radiation. Denies any wt loss. Throat is just really sore, carafate ordered before meals and at bedtime. Consumed pudding and ensure for lunch. Received dinner choices agreed on cottage cheese and peaches with chocolate pudding. Original Note: Consulted by physician secondary to poor intake d/t radiation tx. Patient is in neutropenic precautions. Oncologist recommend boost at least 3times/day. Will add boost TID with meals, may have more if tolerated. May also benefit from soft moist foods- cottage cheese/pudding/yogurt/applesauce, food items that go down throat smoothly.
--- NOTE | 2021-07-31 14:18 | PC.NURSE ---
PT IS RESTING IN BED WITH FAMILY AT BEDSIDE. ALERT AND ORIENTED X4. PT HAS NOT BEEN ABLE TO EAT MUCH DUE TO THE RADIATION IRRITATING HER THROAT BUT SHE HAS BEEN DRINKING ENSURE AND EATING PUDDING. LUNG SOUNDS CLEAR. ABDOMEN SOFT/NON TENDER WITH ACTIVE BOWEL SOUNDS. NSR ON TELEMETRY. PT'S PRBC'S STILL HAVE NOT ARRIVED FROM [facility]. WILL CONTINUE TO MONITOR.
[2021-07-31 20:35] LABS: Hematocrit 23.4 % (37.0-47.0); Hemoglobin 8.1 g/dL (12.2-16.2)
[2021-08-01] VITALS: BP 116/63; PULSE 80; PULSE 81; RESP 18; TEMP 37.1; O2SAT 96
[2021-08-01 04:00] VITALS: BP 118/65; PULSE 80; PULSE 81; RESP 18; TEMP 37.2; O2SAT 96
[2021-08-01 05:07] VITALS: BMI 24.0
[2021-08-01 07:23] LABS: Basophils % 0.3 % (0.1-2.0); Eosinophils % 0.7 % (0.1-12.0); Lymphocytes # 0.2 K/mm3 (0.7-4.5); Lymphocytes % 20.2 % (10-50); Mean Corpuscular HGB Conc 33.8 g/dL (31.8-35.4); Mean Corpuscular Hemoglobin 30.5 pg (27.0-31.2); Mean Corpuscular Volume 90.2 fl (81-99); Mean Platelet Volume 8.4 fl (7.4-10.4); Monocytes # 0.1 K/mm3 (0.1-1.0); Monocytes % 6.3 % (1.7-9.3); Neutrophils # 0.9 K/mm3 (1.8-7.8); Neutrophils % 72.5 % (37.0-80.0); Platelet Count 90 K/mm3 (142-424); Red Blood Count 2.31 M/mm3 (4.20-5.40); Red Cell Distribution Width 14.8 % (11.5-17.5); White Blood Count 1.2 K/mm3 (4.8-10.8)
[2021-08-01 07:27] VITALS: BP 144/78; PULSE 88; RESP 20; TEMP 36.8; O2SAT 97
[2021-08-01 07:27] LABS: Alanine Aminotransferase 15 U/L (12-78); Albumin Level 3.1 g/dl (3.5-5.0); Albumin/Globulin Ratio 1.2 (1.1-1.8); Alkaline Phosphatase 59 U/L (38-126); Anion Gap 8.1 mEq/L (5-15); Aspartate Amino Transferase 21 U/L (14-36); Bilirubin,Total 0.8 mg/dl (0.2-1.3); Blood Urea Nitrogen 13 mg/dl (7-17); Calcium 7.6 mg/dl (8.4-10.2); Carbon Dioxide 28 mmol/L (22.0-30.0); Chloride 100 mmol/L (98-107); Creatinine Clearance Estimated 79 mL/min (50-200); Estimated Glomerular Filt Rate 74 ml/min (>60); GFR (African American) 89 ML/MIN (>60); Globulin 2.6 g/dL (1.3-3.2); Glucose 96 mg/dl (74-100); Magnesium 1.4 mg/dl (1.6-2.3); Potassium 3.1 mmoL/L (3.5-5.1); Sodium 133 mmol/L (136-145); Total Protein,Serum 5.7 g/dl (6.3-8.2)
[2021-08-01 07:57] LABS: Hematocrit 20.8 % (37.0-47.0)
[2021-08-01 08:00] VITALS: PULSE 84
--- NOTE | 2021-08-01 09:15 | HMH.DCSUM ---
General - General Admission date:: 07/30/21 Discharge date: 08/01/21 HPI HPI: Ms. Trent is a 56-year-old female who is new her to our office. She presented to the ER yesterday with generalized weakness. Of note she has a recent diagnosis of lung cancer for which she has been undergoing chemotherapy and radiation treatment. Last treatment of chemo last Tuesday, radiation last . On arrival to the ER she was noted to have significant electrolyte disturbances with hypokalemia, hyponatremia, hypochloremia. Also noted to be anemic with borderline neutropenia. Admitted to medicine for weakness and metabolic derangements. On evaluation this morning, she states she had been very nauseous and had a hard time eating after her radiation due to esophageal irritation. Minimal appetite has led to her dehydration. No fever, cough, diarrhea. Actually has had some constipation for a few days that resolved when taking magnesium oxide. Abdominal pain improved after bowel movement. Denies headache, confusion, focal weakness/neurologic deficits. Pleasant on interview today. Hospital Course Hospital Course: Patient was admitted, placed in neutropenic precautions. Given 1 unit of irradiated packed cells with improvement in her blood count from 6.7/8 grams. She felt better. Electrolytes were corrected by intravenous replacement and with IV fluids. This morning neutropenia slightly improved with total white count at 1.2. Hemoglobin is dropped slightly to 7.0 g but she feels better and has no chest pain or dyspnea. She continues to have some esophagitis type symptoms when she swallows and is basically only on a liquid diet. Electrolytes have normalized and her acute kidney injury has also normalized. Plan will be to discharge home today with Zofran dissolving tablets, sucralfate oral suspension and Protonix twice daily for her esophagitis. I have encouraged aggressive p.o. fluids and neutropenic precautions at home. I will have her come back to the hospital on Tuesday for labs and we will reassess need for possible transfusion if her hemoglobin remains under 6 g. Currently she has no cardiac or pulmonary symptoms and I do not feel compelled to transfuse at this point. Given her immune system status the safest place for her will be at home with neutropenic precautions at this point. Patient did have leukocytes in urine on admission, and responded well to ceftriaxone from a symptom based perspective. Culture is pending but I will discharge home on Omnicef 300 twice a day for 7 days pending culture. Objective Vital signs: Temp Pulse Resp BP Pulse Ox 98.3 F 88 20 144/78 H 97 08/01/21 07:27 08/01/21 07:27 08/01/21 07:27 08/01/21 07:27 08/01/21 07:27 no acute distress, chronically ill appearing - *Routine HEENT Exam Head: Present: normocephalic Eye: Present: EOMI, PERRL ENT: Present: mucous membranes moist - *Routine Neck Exam Present: supple - *Routine Respiratory Exam Present: CTA bilaterally - *Routine Cardiovascular Exam Present: RRR - *Routine Abdominal Exam Present: soft, normoactive bowel sounds. Absent: tenderness - *Routine Extremities Exam Absent: cyanosis, clubbing, edema - *Routine Skin Exam Present: warm. Absent: rash - Detailed Eye Exam Eyelids: Bilateral normal inspection Results Labs on day of discharge: Labs from last 24 hours 08/01/21 08/01/21 07/31/21 06:55 06:55 20:16 WBC 1.2 L* D RBC 2.31 L Hgb 7.0 L 8.1 L D Hct 20.8 L* 23.4 L MCV 90.2 MCH 30.5 MCHC 33.8 RDW 14.8 Plt Count 90 L MPV 8.4 Neut % (Auto) 72.5 Lymph % (Auto) 20.2 [place] % (Auto) 6.3 Eos % (Auto) 0.7 Baso % (Auto) 0.3 Neut # (Auto) 0.9 L* Lymph # (Auto) 0.2 L [place] # (Auto) 0.1 Eos # (Auto) 0.0 Baso # (Auto) 0.0 Total Counted Neutrophils % (Manual) Lymphocytes % (Manual) Monocytes % (Manual) Platelet Estimate
--- NOTE | 2021-08-01 10:21 | PC.NURSE ---
Pt will be discharged and have a outpatient CBC and BMP on Tuesday. Lab has been notified to have a unit of prbc's ready for pt just in case pt's results are critical and she needs to be transfused. notified.
--- NOTE | 2021-08-03 13:59 | CARE MANAGER ---
Attempted to contact patient at number listed and left VM message. MARVIN Mcneill
--- NOTE | 2021-08-03 14:09 | CARE MANAGER ---
Spoke with patient regarding discharge from hospital on 08/01/21. Patient states she had her blood work checked this morning and will follow up with Dr. Thomas regarding these. She denies any issues with getting medications or medication education. MARVIN Cervantes
== END 2021-08-01 10:40 | disposition home or self-care (01) | DRG 683 ==
LOC: ER 16:32 → 2ND 07-31 07:22
PROVIDERS: Internal Medicine Adolescent Medicine; Admitting Provider Internal Medicine Adolescent Medicine; Emergency Provider Emergency Medicine; PCP Internal Medicine Adolescent Medicine; Visit Provider Internal Medicine Adolescent Medicine
DX: N17.9 Acute kidney failure, unspecified (principal); C34.90 Malignant neoplasm of unspecified part of unspecified bronchus or lung; E87.1 Hypo-osmolality and hyponatremia; N39.0 Urinary tract infection, site not specified; E87.6 Hypokalemia; D70.9 Neutropenia, unspecified; D63.0 Anemia in neoplastic disease; J44.9 Chronic obstructive pulmonary disease, unspecified; I10 Essential (primary) hypertension; Z87.891 Personal history of nicotine dependence; Z20.822 Contact with and (suspected) exposure to COVID-19
CPT/HCPCS: 36415; 71045; 80048; 80053; 81001; 83690; 83735; 84484; 85007; 85014; 85018; 85025; 86850; 87086; 93005; 96365; 96367; 96375; 99285; C9803; J0696; P9016; U0003; U0005

== ENCOUNTER → 2021-08-03 08:25 | Outpatient (CLI) | payer BC, SELFPAY ==
[2021-08-03 09:35] LABS: Basophils % 0.3 % (0.1-2.0); Eosinophils % 0.6 % (0.1-12.0); Hematocrit 23.5 % (37.0-47.0); Lymphocytes # 0.3 K/mm3 (0.7-4.5); Lymphocytes % 13.4 % (10-50); Mean Corpuscular HGB Conc 33.9 g/dL (31.8-35.4); Mean Corpuscular Hemoglobin 30.8 pg (27.0-31.2); Mean Corpuscular Volume 90.9 fl (81-99); Mean Platelet Volume 8.6 fl (7.4-10.4); Monocytes # 0.1 K/mm3 (0.1-1.0); Monocytes % 5.3 % (1.7-9.3); Neutrophils # 1.9 K/mm3 (1.8-7.8); Neutrophils % 80.3 % (37.0-80.0); Platelet Count 99 K/mm3 (142-424); Red Blood Count 2.59 M/mm3 (4.20-5.40); Red Cell Distribution Width 15.7 % (11.5-17.5); White Blood Count 2.4 K/mm3 (4.8-10.8)
[2021-08-03 10:02] LABS: Chloride 92 mmol/L (98-107); Sodium 130 mmol/L (136-145)
[2021-08-03 10:05] LABS: Anion Gap 13.8 mEq/L (5-15); Blood Urea Nitrogen 5 mg/dl (7-17); Carbon Dioxide 27 mmol/L (22.0-30.0); Estimated Glomerular Filt Rate 64 ml/min (>60); GFR (African American) 78 ML/MIN (>60)
[2021-08-03 10:06] LABS: Calcium 7.4 mg/dl (8.4-10.2); Glucose 131 mg/dl (74-100)
[2021-08-03 11:05] LABS: Potassium 2.8 mmoL/L (3.5-5.1)
== END ==
PROVIDERS: Visit Provider Internal Medicine Adolescent Medicine
DX: D64.9 Anemia, unspecified (principal)
CPT/HCPCS: 36415; 80048; 85025

== ENCOUNTER 2021-08-11 08:27 | Outpatient (CLI) | payer BC, SELFPAY ==
[2021-08-11] VITALS (21 sets, daily range): BP systolic 111–150; BP diastolic 66–83; PULSE 79–94; RESP 16–18; TEMP 36.6–36.8; O2SAT 97–99; BMI 22.4
[2021-08-11 09:18] LABS: Hematocrit 20.2 % (37.0-47.0); Hemoglobin 6.6 g/dL (12.2-16.2)
--- NOTE | 2021-08-11 09:29 | PC.NURSE ---
0920 Chetna called MARVIN Beasley at 0918 to report H&H 6.6/20.2. RN repeated and verified patient name, date of , and lab value. Result called to Dr. Thomas and no new orders received. Patient to receive blood transfusion of 2 units PRBC as previously ordered.
--- NOTE | 2021-08-11 09:38 | PC.NURSE ---
Chetna Weaver called RN at 0918 to report hgb-6.6, hct-20.2. RN repeated and verified pts name, , and lab value. Result called to Dr. Thomas, no new orders noted. Orders written for blood transfusion.
--- NOTE | 2021-08-11 14:18 | PC.NURSE ---
1105 Initiation of transfusion of 1st unit PRBC at this time. Vital signs stable. Resp easy/reg. IV patent. Reviewed s/s transfusion reaction with patient, who verbalizes understanding of all instruction. Lungs with occasional scattered rhonchi bilateral posterior, no rales. 1135 Patient tolerating blood well with no s/s transfusion reaction or problems noted. Denies complaints. Eating lunch and talking with staff. Resp easy/reg. No problems noted. 1205 Tolerating blood well. No s/s transfusion reaction. Vital signs stable. Denies complaints. 1312 1st unit PRBC complete at this time. VSS. Resp easy/reg. Patient denies complaints. No s/s transfusion reaction or problems noted. Up to bathroom to void.
--- NOTE | 2021-08-11 15:59 | PC.NURSE ---
1335 Initiation of transfusion of 2nd unit of PRBC. Vital signs stable. Resp easy/reg. IV patent. Resp easy/reg. Lungs consistent with baseline assessment. Patient verbalizes understanding of s/s transfusion reaction. 1350 Patient tolerating blood well. Denies complaints. No problems noted. 1420 Continues to tolerate blood well. VSS. Resp easy/reg. Talking with staff/family/denies any complaints. 1450 No s/s transufsion reaction or problems noted. Family at bedside. VSS. Resp easy/reg. Skin warm/dry to touch. IV patent. 1540 2nd unit PRBC complete at this time. Patient tolerated very well with no s/s transfusion reaction or problems noted. Will obtain one hour post transfusion H&H.
[2021-08-11 16:51] LABS: Hematocrit 28.1 % (37.0-47.0)
[2021-08-11 17:26] LABS: Hemoglobin 9.6 g/dL (12.2-16.2)
== END 2021-08-11 16:40 | disposition home or self-care (01) ==
LOC: INF 08:28
PROVIDERS: PCP Internal Medicine Adolescent Medicine; Visit Provider Internal Medicine Adolescent Medicine
DX: D64.9 Anemia, unspecified (principal)
CPT/HCPCS: 36430; 85014; 85018; 86850; P9016

== ENCOUNTER → 2022-02-16 14:11 | Outpatient (CLI) | payer BC, OTHER, SELFPAY ==
[2022-02-16 14:18] LABS: Microscopic, Urine URINE MICROSCOPIC (MICROSCOPIC)
[2022-02-16 17:04] LABS: Hematocrit 32.4 % (37.0-47.0); Hemoglobin 10.4 g/dL (12.2-16.2); Mean Corpuscular HGB Conc 32.1 g/dL (31.8-35.4); Mean Corpuscular Hemoglobin 31.8 pg (27.0-31.2); Mean Corpuscular Volume 98.8 fl (81-99); Platelet Count 194 K/mm3 (142-424); Red Blood Count 3.28 M/mm3 (4.20-5.40); Red Cell Distribution Width 14.8 % (11.5-17.5); White Blood Count 5.6 K/mm3 (4.8-10.8)
[2022-02-16 18:06] LABS: Appearance,Urine CLEAR (Clear); Bilirubin,Urine Negative (Negative); Blood, Urine Negative (Negative); Color,Urine YELLOW (Yellow); Glucose,Urine (UA) Negative (Negative); Ketones,Urine Negative (Negative); Leukocyte Esterase,Urine 1+ (Negative); Nitrate,Urine Negative (Negative); Protein,Urine Negative (Negative); Specific Gravity, Urine 1.025 (1.005-1.030); Urobilinogen,Urine 0.2 EU/dl (0.2)
[2022-02-16 18:30] LABS: Chloride 99 mmol/L (98-107); Potassium 4.5 mmoL/L (3.5-5.1); Sodium 140 mmol/L (136-145)
[2022-02-16 18:31] LABS: Albumin Level 4.4 g/dl (3.5-5.0)
[2022-02-16 18:33] LABS: Anion Gap 15.5 mEq/L (5-15); Blood Urea Nitrogen 30 mg/dl (7-17); Calcium 8.9 mg/dl (8.4-10.2); Carbon Dioxide 30 mmol/L (22.0-30.0); Estimated Glomerular Filt Rate 38 ml/min (>60); GFR (African American) 47 ML/MIN (>60); Glucose 95 mg/dl (74-100); Phosphorous 4.2 mg/dl (2.5-4.5)
[2022-02-16 18:37] LABS: Creatinine,Urine Random 161 mg/dL (Not Estab.)
[2022-02-16 18:50] LABS: 25-OH Vitamin D, Total 62.2 ng/mL (30-100)
[2022-02-16 19:42] LABS: Bacteria,Urine 2+ /lpf
[2022-02-16 21:55] LABS: Intact Parathyroid Hormone 35.8 pg/mL (7.5-53.5)
== END ==
PROVIDERS: PCP Internal Medicine Adolescent Medicine; Visit Provider Internal Medicine
DX: N18.30 Chronic kidney disease, stage 3 unspecified (principal)
CPT/HCPCS: 36415; 80069; 81001; 82306; 82570; 83970; 84155; 85014; 85018; 85048; 85049; 87086

== ENCOUNTER → 2022-04-14 14:19 | Outpatient (CLI) | payer BC, OTHER, SELFPAY ==
[2022-04-14 14:29] LABS: Microscopic, Urine URINE MICROSCOPIC (MICROSCOPIC)
[2022-04-14 15:26] LABS: Hematocrit 34.6 % (37.0-47.0); Hemoglobin 11.2 g/dL (12.2-16.2); Mean Corpuscular HGB Conc 32.3 g/dL (31.8-35.4); Mean Corpuscular Hemoglobin 31.1 pg (27.0-31.2); Mean Corpuscular Volume 96.2 fl (81-99); Platelet Count 245 K/mm3 (142-424); Red Blood Count 3.59 M/mm3 (4.20-5.40); Red Cell Distribution Width 14.1 % (11.5-17.5); White Blood Count 6.5 K/mm3 (4.8-10.8)
[2022-04-14 15:32] LABS: Appearance,Urine CLEAR (Clear); Bilirubin,Urine Negative (Negative); Blood, Urine Negative (Negative); Color,Urine YELLOW (Yellow); Glucose,Urine (UA) Negative (Negative); Ketones,Urine Negative (Negative); Leukocyte Esterase,Urine 1+ (Negative); Nitrate,Urine Negative (Negative); Protein,Urine Negative (Negative); Specific Gravity, Urine 1.015 (1.005-1.030); Urobilinogen,Urine 0.2 EU/dl (0.2)
[2022-04-14 15:55] LABS: Creatinine,Urine Random 95 mg/dL (Not Estab.)
[2022-04-14 16:21] LABS: Bacteria,Urine 1+ /lpf; Squamous Epithelial Cell,Urine 20-50 #/hpf (0-5)
[2022-04-14 17:27] LABS: Albumin Level 4.2 g/dl (3.5-5.0); Anion Gap 13.5 mEq/L (5-15); Blood Urea Nitrogen 29 mg/dl (7-17); Calcium 9.1 mg/dl (8.4-10.2); Carbon Dioxide 30 mmol/L (22.0-30.0); Chloride 99 mmol/L (98-107); Estimated Glomerular Filt Rate 38 ml/min (>60); GFR (African American) 47 ML/MIN (>60); Glucose 91 mg/dl (74-100); Phosphorous 3.7 mg/dl (2.5-4.5); Potassium 4.5 mmoL/L (3.5-5.1); Sodium 138 mmol/L (136-145)
[2022-04-14 17:40] LABS: Intact Parathyroid Hormone 74.7 pg/mL (7.5-53.5)
== END ==
PROVIDERS: PCP Internal Medicine Adolescent Medicine; Visit Provider Internal Medicine
DX: N18.30 Chronic kidney disease, stage 3 unspecified (principal)
CPT/HCPCS: 36415; 80069; 81001; 82306; 82570; 83970; 84155; 85014; 85018; 85048; 85049; 87086

== ENCOUNTER → 2022-10-12 15:00 | Outpatient (CLI) | payer BC, OTHER, SELFPAY ==
[2022-10-12 15:06] LABS: Microscopic, Urine URINE MICROSCOPIC (MICROSCOPIC)
[2022-10-12 15:54] LABS: Hematocrit 38.4 % (37.0-47.0); Hemoglobin 12.6 g/dL (12.2-16.2); Mean Corpuscular HGB Conc 32.8 g/dL (31.8-35.4); Mean Corpuscular Volume 91.4 fl (81-99); Platelet Count 251 K/mm3 (142-424); Red Cell Distribution Width 13.8 % (11.5-17.5); White Blood Count 5.9 K/mm3 (4.8-10.8)
[2022-10-12 16:46] LABS: Appearance,Urine CLEAR (Clear); Bilirubin,Urine Negative (Negative); Blood, Urine TRACE-I (Negative); Color,Urine YELLOW (Yellow); Glucose,Urine (UA) Negative (Negative); Ketones,Urine Negative (Negative); Leukocyte Esterase,Urine 1+ (Negative); Nitrate,Urine Negative (Negative); Protein,Urine Negative (Negative); Urobilinogen,Urine 0.2 EU/dl (0.2)
[2022-10-12 17:32] LABS: Albumin Level 4.4 g/dl (3.5-5.0); Chloride 96 mmol/L (98-107); Potassium 4.1 mmoL/L (3.5-5.1); Sodium 137 mmol/L (136-145)
[2022-10-12 17:35] LABS: Anion Gap 17.1 mEq/L (5-15); Blood Urea Nitrogen 22 mg/dl (7-17); Carbon Dioxide 28 mmol/L (22.0-30.0); Estimated Glomerular Filt Rate 42 ml/min (>60); GFR (African American) 51 ML/MIN (>60); Glucose 145 mg/dl (74-100); Phosphorous 3.5 mg/dl (2.5-4.5)
[2022-10-12 17:44] LABS: Creatinine,Urine Random 102 mg/dL (Not Estab.); Total Protein,Urine Random < 5.0 mg/dL (0.0-12.0)
[2022-10-12 17:49] LABS: 25-OH Vitamin D, Total 42.3 ng/mL (30-100); Bacteria,Urine 1+ /lpf; RBC,Urine Occasional #/hpf (0-3)
[2022-10-12 17:51] LABS: Intact Parathyroid Hormone 76.4 pg/mL (7.5-53.5)
== END ==
PROVIDERS: Internal Medicine; PCP Internal Medicine Adolescent Medicine; Visit Provider Internal Medicine Adolescent Medicine
DX: N18.30 Chronic kidney disease, stage 3 unspecified (principal)
CPT/HCPCS: 36415; 80069; 81001; 82306; 82570; 83970; 84155; 85014; 85018; 85048; 85049; 87086

== ENCOUNTER 2022-11-19 14:30 | Emergency (ER) | payer BC, SELFPAY ==
[2022-11-19 14:35] VITALS: BP 120/87; PULSE 97; RESP 19; TEMP 36.9; O2SAT 98; BMI 23.8
--- NOTE | 2022-11-19 14:50 | EXP.UTC ---
Discharge Plan Disposition Patient Disposition: Home, Self-Care Condition: Good Prescriptions Prescriptions: New cephalexin 500 mg capsule 500 mg PO QID 7 Days Qty: 28 0RF mupirocin 2 % ointment 1 applic topical TID 10 Days Qty: 22 0RF Rx Instructions: apply to area as directed No Action levothyroxine 88 mcg tablet 88 mcg PO DAILY Label Comments: TAKE 1 TABLET BY MOUTH ONCE DAILY BEFORE BREAKFAST Stiolto Respimat 2.5-2.5 mcg/actuation mist 2 puff INHALATION DAILY Label Comments: INHALE 2 PUFFS BY MOUTH EVERY 24 HOURS Referrals Follow up/Referrals: Johny Donis MD [Referring] - 12/01/22 3:40 am ([address] second floor) Rashad Thomas MD [Primary Care Provider] - See instructions Activity Restrictions/Add. Instructions Additional Instructions/Restrictions: You have an appointment with Dr Johny Donis on December 01 at 340pm Do not pick or try to mash area Follow up with your Family Doctor if needed Straight to ER if any life threatening symptoms Warm compresses may help with tenderness and pain Clinical Impressions Clinical Impression: Skin problem Instructions Patient Instructions: DI for Cellulitis -- Adult, Cephalexin, Mupirocin Discharge ED Provider: Ayla Viveros [facility] General Stated complaint: knot on back Mode of Arrival: Ambulatory Source of Information: Patient Limitations: No Limitations Time Seen by Provider: 11/19/22 14:50 Description of Symptoms (Recalled from Triage Doc. by RN): PATIENT C/O SORE KNOT ON LOWER BACK THAT HAS BEEN THERE FOR APPROX 1.5 WEEKS. HEENT Symptoms (Recalled from RN notes): No Resp Symptoms (Recalled from RN notes): No Skin Symptoms (Recalled from RN notes): Yes MS Symptoms (Recalled from RN notes): No Functional Status (Recalled from RN notes): WNL History of Present Illness Provider Complaint: Patient states she noticed a couple of weeks ago that she had a small hard round area on her right lower back States that she tried to pop it but nothing came out and it was starting to get larger and looking red around it and it feels hard Related Data Home Medications Medication Instructions Recorded Confirmed levothyroxine 88 mcg tablet 88 mcg PO DAILY Supplement 11/19/22 11/19/22 tiotropium 2.5 mcg-olodaterol 2.5 2 puff inhalation DAILY COPD 11/19/22 11/19/22 mcg/actuation mist for inhalation (Stiolto Respimat) Previous Rx's Medication Instructions Recorded cephalexin 500 mg capsule 500 mg PO QID 7 days #28 caps 11/19/22 mupirocin 2 % topical ointment 1 applic topical TID 10 days #22 11/19/22 grams Allergies Allergy/AdvReac Type Severity Reaction Status Date / Time No Known Allergies Allergy Verified 01/09/21 08:42 Worker's Comp Is this a Worker's Comp case?: No [facility] Disclaimer: The information contained in this section may have been updated after the patient was seen, as this information can be updated by other users. Medical History (Updated 11/19/22 @ 15:11 by Ayla Viveros APRN) Cancer COPD (chronic obstructive pulmonary disease) Thyroid disease Surgical History (Updated 11/19/22 @ 14:49 by Leslye Snyder RN) History of section History of tubal ligation Social History Smoking Status: Current every day smoker tobacco type: cigarettes packs per day: 1 second hand exposure: No alcohol intake: current substance use type: denies use current occupational status: unemployed Travel in the last 8 weeks: Inside the [place] household members: spouse housing: house current occupation: [employer] current occupational exposures/hazards: Yes caffeine: Yes ROS Obtained: Yes All systems reviewed & no additional complaints except as documented and Yes Systems reviewed as appropriate & no additional complaints except as documented Constitutional Constitutional: Reports system reviewed and no additional complaints, except as documented and Rep
[2022-11-19 14:53] VITALS: BP 120/87; PULSE 97; RESP 19; TEMP 36.9; O2SAT 98
== END 2022-11-19 15:15 | disposition home or self-care (01) ==
PROVIDERS: Emergency Provider Nurse Practitioner; PCP Internal Medicine Adolescent Medicine
DX: B96.89 Other specified bacterial agents as the cause of diseases classified elsewhere (principal); R22.2 Localized swelling, mass and lump, trunk; F17.210 Nicotine dependence, cigarettes, uncomplicated; J44.9 Chronic obstructive pulmonary disease, unspecified; E03.9 Hypothyroidism, unspecified
CPT/HCPCS: 87070; 87077; 87186; 87205; 99204; 99212; G0463

== ENCOUNTER → 2023-03-24 14:35 | Outpatient (CLI) | payer BC, SELFPAY | PROVIDERS: PCP Internal Medicine Adolescent Medicine; Visit Provider Internal Medicine Hematology & Oncology | DX: C34.91 Malignant neoplasm of unspecified part of right bronchus or lung (principal) | CPT/HCPCS: 36415; 84443 ==